=== PATIENT | female | born 1970 | race Caucasian/White ===

== ENCOUNTER → 2021-10-16 | Outpatient (CLI) | payer BC | END | disposition home or self-care (01) | LOC: WHH 13:53 | PROVIDERS: ATTEND Family Medicine | DX: T81.32XA Disruption of internal operation (surgical) wound, not elsewhere classified, initial encounter (principal); E11.9 Type 2 diabetes mellitus without complications; E03.9 Hypothyroidism, unspecified; I10 Essential (primary) hypertension; E66.8 Other obesity; Z68.42 Body mass index [BMI] 45.0-49.9, adult; Z79.4 Long term (current) use of insulin; Z79.899 Other long term (current) drug therapy; Z88.8 Allergy status to other drugs, medicaments and biological substances; Y83.8 Other surgical procedures as the cause of abnormal reaction of the patient, or of later complication, without mention of misadventure at the time of the procedure; Y92.238 Other place in hospital as the place of occurrence of the external cause | CPT/HCPCS: 99205; A4450; A6197 ==

== ENCOUNTER → 2021-10-21 | Outpatient (CLI) | payer BC | END | disposition home or self-care (01) | LOC: WHH 09:59 | PROVIDERS: ATTEND Family Medicine | DX: T81.32XD Disruption of internal operation (surgical) wound, not elsewhere classified, subsequent encounter (principal); E11.9 Type 2 diabetes mellitus without complications; E03.9 Hypothyroidism, unspecified; I10 Essential (primary) hypertension; E66.8 Other obesity; Z68.42 Body mass index [BMI] 45.0-49.9, adult; Z79.4 Long term (current) use of insulin; Z79.899 Other long term (current) drug therapy; Z88.8 Allergy status to other drugs, medicaments and biological substances; Y83.8 Other surgical procedures as the cause of abnormal reaction of the patient, or of later complication, without mention of misadventure at the time of the procedure | CPT/HCPCS: 99214; A6197 ==

== ENCOUNTER → 2021-10-28 | Outpatient (CLI) | payer BC ==
[~2021-10-28] MED LIST: LIDOCAINE HCL 4% LTA SOL 4 ML VIAL ONE
== END | disposition home or self-care (01) ==
LOC: WHH 08:10
PROVIDERS: ATTEND Family Medicine
DX: T81.32XD Disruption of internal operation (surgical) wound, not elsewhere classified, subsequent encounter (principal); E11.9 Type 2 diabetes mellitus without complications; E03.9 Hypothyroidism, unspecified; I10 Essential (primary) hypertension; E66.8 Other obesity; Z68.42 Body mass index [BMI] 45.0-49.9, adult; Z79.4 Long term (current) use of insulin; Z79.899 Other long term (current) drug therapy; Z88.8 Allergy status to other drugs, medicaments and biological substances; Y83.8 Other surgical procedures as the cause of abnormal reaction of the patient, or of later complication, without mention of misadventure at the time of the procedure
CPT/HCPCS: 99214; A4450

== ENCOUNTER → 2021-11-18 | Outpatient (CLI) | payer BC | END | disposition home or self-care (01) | LOC: WHH 08:13 | PROVIDERS: ATTEND Family Medicine | DX: T81.32XD Disruption of internal operation (surgical) wound, not elsewhere classified, subsequent encounter (principal); E11.9 Type 2 diabetes mellitus without complications; E03.9 Hypothyroidism, unspecified; I10 Essential (primary) hypertension; E66.8 Other obesity; Z68.42 Body mass index [BMI] 45.0-49.9, adult; Z79.4 Long term (current) use of insulin; Z79.899 Other long term (current) drug therapy; Z88.8 Allergy status to other drugs, medicaments and biological substances; Y83.8 Other surgical procedures as the cause of abnormal reaction of the patient, or of later complication, without mention of misadventure at the time of the procedure | CPT/HCPCS: 11042 ==

== ENCOUNTER → 2021-12-08 | Outpatient (CLI) | payer BC | LOC: WHH 08:21 | PROVIDERS: ATTEND Family Medicine | DX: T81.32XD Disruption of internal operation (surgical) wound, not elsewhere classified, subsequent encounter (principal); E11.9 Type 2 diabetes mellitus without complications; E03.9 Hypothyroidism, unspecified; I10 Essential (primary) hypertension; E66.8 Other obesity; Z68.42 Body mass index [BMI] 45.0-49.9, adult; Z79.4 Long term (current) use of insulin; Z79.899 Other long term (current) drug therapy; Z88.8 Allergy status to other drugs, medicaments and biological substances; Y83.8 Other surgical procedures as the cause of abnormal reaction of the patient, or of later complication, without mention of misadventure at the time of the procedure | CPT/HCPCS: 11042 ==

== ENCOUNTER → 2021-12-16 | Outpatient (CLI) | payer BC | LOC: WHH 08:06 | PROVIDERS: ATTEND Family Medicine | DX: T81.32XD Disruption of internal operation (surgical) wound, not elsewhere classified, subsequent encounter (principal); E11.9 Type 2 diabetes mellitus without complications; I10 Essential (primary) hypertension; E03.9 Hypothyroidism, unspecified; E66.8 Other obesity; Z68.42 Body mass index [BMI] 45.0-49.9, adult; Z79.4 Long term (current) use of insulin; Z79.899 Other long term (current) drug therapy; Z88.8 Allergy status to other drugs, medicaments and biological substances; Y83.8 Other surgical procedures as the cause of abnormal reaction of the patient, or of later complication, without mention of misadventure at the time of the procedure | CPT/HCPCS: 97597 ==

== ENCOUNTER → 2021-12-26 | Outpatient (CLI) | payer BC | END | disposition home or self-care (01) | LOC: WHH 08:29 | PROVIDERS: ATTEND Family Medicine | DX: T81.32XD Disruption of internal operation (surgical) wound, not elsewhere classified, subsequent encounter (principal); E11.9 Type 2 diabetes mellitus without complications; I10 Essential (primary) hypertension; E03.9 Hypothyroidism, unspecified; E66.8 Other obesity; Z68.42 Body mass index [BMI] 45.0-49.9, adult; Z88.8 Allergy status to other drugs, medicaments and biological substances; Z79.4 Long term (current) use of insulin; Z79.899 Other long term (current) drug therapy; Y83.8 Other surgical procedures as the cause of abnormal reaction of the patient, or of later complication, without mention of misadventure at the time of the procedure | CPT/HCPCS: 99214 ==

== ENCOUNTER 2025-04-06 06:43 | Day surgery (SDC) | payer BC ==
--- NOTE | 2025-04-04 11:36 | EKG ---
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
[2025-04-04 11:45] LABS: IMMATURE GRANULOCYTE ABSOLUTE 0.02 K/uL (0-1); NUCLEATED RED BLOOD CELLS 0.0 % (0.0-0.19); PLATELET COUNT (AUTO) 201 K/uL (130-400); RED BLOOD CELL COUNT(AUTO) 4.88 MIL/uL (4.00-5.50); RED CELL DISTRIBUTION WIDTH 13.7 % (11.0-15.5); WHITE BLOOD COUNT (AUTO) 7.3 K/uL (4.8-10.8)
[2025-04-04 11:49] VITALS: BP 129/66; PULSE 70; RESP 16; TEMP 97.2
[2025-04-04 11:51] LABS: CREATININE 0.7 mg/dL (0.5-1.0); GLOMERULAR FILTR. RATE CALC 103.0 mL/min (>90); GLUCOSE,RANDOM 81.0 mg/dL (70-105); SODIUM SERUM 142.0 mmol/L (136-145); UREA NITROGEN, BLOOD 30.0 mg/dL (7-18)
[2025-04-04 11:56] LABS: INR <= 0.93 (0.85-1.15)
[2025-04-04 12:06] LABS: APPEARANCE,URINE CLEAR (CLEAR); GLUCOSE, URINE (UA) >=1000 mg/dL (NEGATIVE); LEUKOCYTE ESTERASE ,URINE 75 Leu/uL (NEGATIVE); NITRATE,URINE NEGATIVE (NEGATIVE); OCCULT BLOOD,URINE NEGATIVE (NEGATIVE)
[2025-04-04 12:25] LABS: ADD UA MICROSCOPIC YES
[2025-04-04 12:29] LABS: SQUAMOUS EPITHELIAL CELL,UR RARE /HPF (0-2)
--- NOTE | 2025-04-05 04:25 | HMCIMG ---
EXAM: CR Chest, 1 view CLINICAL HISTORY: Preoperative evaluation. COMPARISON: Chest radiograph dated 09/12/2012. FINDINGS: The lungs show no infiltrates or other acute findings. No pleural effusion or pneumothorax. The cardiomediastinal silhouette is within normal limits. No acute osseous abnormality. IMPRESSION: No acute cardiopulmonary process is evident. No adverse interval changes. /[place]
[~2025-04-06] VITALS: Ht 172.7 cm; Wt 114.8 kg
[2025-04-06] VITALS (12 sets, daily range): BP systolic 130–151; BP diastolic 65–86; PULSE 65–84; RESP 15–18; TEMP 97.2–97.6
[~2025-04-06 06:43] MED LIST changes: +ATOR20TA65 PO; +DESL5TAB45 PO; +EMPA25TA PO; +HYDR25TA PO; +INSU100I24 SQ; +IRON PO; +LEVO112C5 PO; -LIDOCAINE HCL 4% LTA SOL 4 ML VIAL ONE; +LOSA50TA64 PO; +MAGN500C4 PO; +MECL-226 PO; +MONT-39 PO; +TIRZ10PE SQ; +UBID100C10 PO; +VITAMIN B12 PO
[2025-04-06] MEDS ORDERED: SODIUM BICARB 50MEQ 50ML VIAL 50 ML ONE (09:39)
[2025-04-06] MEDS ORDERED: LIDOCAINE HCL 400MG/20ML VIAL ONE (09:39)
[2025-04-06] MEDS ORDERED: IODIXANOL 320 MG/ML 100 ML VIAL ONE (09:39)
[2025-04-06] MEDS ORDERED: HEParin-NS 1,000 UNIT/500 ML 1,000 ML IV ONE (09:39)
[2025-04-06] MEDS ORDERED: NITROGLYCERIN 50MG VIAL ONE (09:56)
[2025-04-06] MEDS ORDERED: MIDAZOLAM HCL 1 MG/ML 2ML VIAL ONE ×3 (09:57→11:23)
[2025-04-06] MEDS ORDERED: ASPIRIN 325MG EC TAB PO ONE (11:34)
--- NOTE | 2025-04-06 12:03 | PRN ---
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 Technique: Patient was brought to the lab in a fasting state after informed consent and sedated with 1 mg Versed and 50 mcg fentanyl. Additional Versed and fentanyl was administered to optimize sedation; refer to computerized procedural notes for details of medication administration and monitoring. Under local anesthesia with 1% lidocaine using ultrasound guidance and micropuncture technique the right jugular vein was accessed and a nine Divehi sheath was inserted. Using a Glidewire and a angled glide catheter of the left deep femoral vein was accessed and the catheter was exchanged for an intravascular ultrasound catheter with which we performed intravascular ultrasound on the common femoral vein to the IVC. I personally performed the procedure, selected images for measurement, performed the measurements and interpreted the results. 5000 units aqueous heparin, 600 mg oral clopidogrel, and 325 mg oral aspirin wer e administered and we exchanged for a 18 x 120 mm Medtronic Abre venous self expanding stent system which was positioned from common femoral to proximal external iliac. We then exchanged for a 18 x 80 mm Abre venous self expanding stent system which was inserted in the left common femoral vein. Results were as evaluated by intravascular ultrasound, then we repositioned the guidewire and the ultrasound in the right femoral vein and performed right femoral to IVC ultrasound. Again, I personally performed the procedure, selected images for interpretation, performed the measurements and interpreted the results. We exchanged for a Medtronic Abre 16 x 150 mm venous stent which was deployed from right common femoral to the ostium of the right common iliac. Results were again inspected by intravascular ultrasound. At the conclusion of the procedure the catheters were removed, the patient was sat upright and the sheath was removed and hemostasis was obtained by direct digital pressure. No complications occurred. The patient was pretreated with steroids in case we needed to administer contrast, but we did not. Results: Left side intravascular ultrasound measurements before and after stenting: Common iliac vein reference area 209.8 mm, diameter 15.9 mm. Left common iliac compression area 60.2 mm, diameter 10.7 mm, 71% stenosis. Left common iliac post stent area 246.8 mm, diameter 17.7 mm, 0% residual. Left external iliac vein reference area 144.8 mm, diameter 14.3 mm. Left external iliac vein compression area 92.6 mm, diameter 12 mm. External iliac compression stenosis as compared to femoral reference area (diffuse external iliac vein compression noted) is 54.8% Left external iliac vein post stent area 158.8 mm, 0% residual as compared to external iliac reference area or 23% residual as compared to common femoral reference area. Left common femoral vein reference area 204.6 mm, diameter 17 mm. Right side intravascular ultrasound measurements before and after stenting: Right common iliac reference area 160, diameter 14.2 mm. Right common iliac vein compression area 64.9 mm, diameter 11 mm, 57.4% stenosis. Right common iliac vein post stent area 191 mm, diameter 15.5 mm, 0% residual. Right external iliac vein reference area 144.8 mm, diameter 13.9 mm. Right external iliac vein compression area 61.7 mm, diameter 10.5 mm, 57.4% stenosis. Right external iliac vein post stent area 158.4 mm, diameter 14.2 mm, 0% residual. Right common femoral vein reference area 199.4 mm, diameter 15.7 mm. 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 Successful treatment of May-Thurner syndrome with common and external iliac vein stenting of both sides. CODY BARNHART MD Apr 06, 2025 12:03
[2025-04-06] MEDS ORDERED: ASPI-1443 PO (12:06)
[2025-04-06] MEDS ORDERED: CLOP75TA32 PO (12:06)
== END 2025-04-06 16:11 | disposition home or self-care (01) ==
LOC: DAH 06:43
PROVIDERS: ATTEND Internal Medicine Cardiovascular Disease
DX: I87.1 Compression of vein (principal); I87.2 Venous insufficiency (chronic) (peripheral); R60.9 Edema, unspecified; I70.209 Unspecified atherosclerosis of native arteries of extremities, unspecified extremity; I10 Essential (primary) hypertension; E78.5 Hyperlipidemia, unspecified; E03.9 Hypothyroidism, unspecified; E11.9 Type 2 diabetes mellitus without complications; Z79.01 Long term (current) use of anticoagulants; Z82.49 Family history of ischemic heart disease and other diseases of the circulatory system; Z88.5 Allergy status to narcotic agent; Z91.041 Radiographic dye allergy status; Z79.899 Other long term (current) drug therapy; Z98.890 Other specified postprocedural states
CPT/HCPCS: 80048; 83880; 85025; 85610; 85730; 87086 ×2; 81001; 36415; 71045; 93005; 37238; 37239 ×2; 36012; 75822; 37252; 37253 ×5; 99156; 99157 ×3; 87186; 82948; A4223 ×3; C1876 ×3; C1887; C1894 ×2; C1753; C1769; J3010; J3490 ×3; J2919; J1644 ×2; J2250 ×3; Q9967; A4215; A4222; A4221; A4663; A4216; A4606

== ENCOUNTER → 2025-07-12 | Outpatient (CLI) | payer BC ==
[~2025-07-12] MED LIST changes: +ASPI-1443 PO; +CLOP75TA32 PO
--- NOTE | 2025-07-17 23:11 | HMCIMG ---
EXAM: RIGHT HIP RADIOGRAPHS, TWO TO THREE VIEWS (WITH PELVIS) Technique: Anteroposterior view of the pelvis and anteroposterior and lateral projections of the right hip were obtained. Clinical Information: Hip pain. Findings: No acute fracture is identified. No dislocation is identified. Right hip demonstrates mild degenerative change with acetabular rim sclerosis and subtle periarticular osteophyte formation. Joint space of the right hip is preserved without focal collapse. Left hip joint space appears preserved on the pelvic view. Sacroiliac joints demonstrate mild bilateral subchondral sclerosis consistent with mild sacroiliitis. Visualized pelvic ring is intact. Vascular metallic stents are present in the regions of the bilateral iliac arteries. No focal soft tissue abnormality is identified.IMPRESSION: 1. No acute osseous injury. 2. Mild right hip osteoarthritis and bilateral sacroiliitis. /[place]
== END | disposition home or self-care (01) ==
LOC: RAH 11:52
PROVIDERS: ATTEND Student in an Organized Health Care Education/Training Program
DX: M16.11 Unilateral primary osteoarthritis, right hip (principal); M46.1 Sacroiliitis, not elsewhere classified; M25.751 Osteophyte, right hip; M25.551 Pain in right hip
CPT/HCPCS: 73502